=== PATIENT | male | born 1980 | race Caucasian/White ===

== ENCOUNTER 2019-07-22 17:57 | Emergency (ER) | payer OTHER ==
[~2019-07-22] VITALS: Ht 188 cm; Wt 115.7 kg
[2019-07-22] MEDS ORDERED: ADDERALL 20 MG20 MG PO (18:16)
[2019-07-22] MEDS ORDERED: TRAMADOL 50 MG50 MG PO (19:05)
[2019-07-22 19:16] VITALS: BP 158/104
== END 2019-07-22 19:19 | disposition home or self-care (01) ==
LOC: M.ERS 17:57
DX: S67.191A Crushing injury of left index finger, initial encounter (principal); F90.9 Attention-deficit hyperactivity disorder, unspecified type; W23.0XXA Caught, crushed, jammed, or pinched between moving objects, initial encounter; Y93.89 Activity, other specified; Y92.89 Other specified places as the place of occurrence of the external cause; Y99.8 Other external cause status